=== PATIENT | female | born 1965 | race Caucasian/White ===

== ENCOUNTER → 2020-07-17 | Day surgery (SDC) | payer OTHER ==
[~2020-07-17] MED LIST: ATORVASTATIN CA10 MG PO; AZATHIOPRINE50 MG PO; CLARITIN10 MG PO; FOSAMAX70 MG PO; FYAVOLV 1 MG-51 EACH PO; NORCO 5-325 TA1 EACH PO; ONDANSETRON ODT8 MG PO; PREDNISONE5 MG PO; SINGULAIR10 MG PO; SYNTHROID50 MCG PO; VITAMIN D310 MC1 PO
[2020-07-17 08:43] LABS: HCG (URINE) SCREEN NEGATIVE (NEGATIVE)
[2020-07-17 08:59] LABS: HCT 39.2 % (37.0-47.0); HGB 13.5 g/dl (12.5-16.0); MCH 32.1 pg (25.0-31.0); MCHC 34.4 g/dL (32.0-36.0); MCV 93.3 fL (78.0-100.0); RBC 4.2 M/uL (4.20-5.40); RDW 11.9 % (11.5-14.0); WBC 6.3 K/uL (4.0-10.5)
[2020-07-17 09:15] LABS: ALBUMIN 3.8 g/dL (3.4-5.0); BILIRUBIN - TOTAL 1.3 mg/dL (0.2-1.0); BUN/CREAT RATIO (CALC) 10.3 RATIO; CREATININE 0.87 mg/dL (0.51-0.95); GLOBULIN (CALCULATION) 3.5 g/dL; POTASSIUM 3.9 mmol/L (3.5-5.1); TOTAL PROTEIN 7.3 g/dL (6.4-8.2)
== END | disposition home or self-care (01) ==
LOC: FAS 08:21
PROVIDERS: Surgery
DX: Z12.11 Encounter for screening for malignant neoplasm of colon (principal); K64.1 Second degree hemorrhoids; K57.30 Diverticulosis of large intestine without perforation or abscess without bleeding; E78.5 Hyperlipidemia, unspecified; E78.00 Pure hypercholesterolemia, unspecified; E03.9 Hypothyroidism, unspecified; Z88.2 Allergy status to sulfonamides; Z79.899 Other long term (current) drug therapy; Z98.890 Other specified postprocedural states; Z82.49 Family history of ischemic heart disease and other diseases of the circulatory system; Z20.822 Contact with and (suspected) exposure to COVID-19
CPT/HCPCS: 36415; 80053; 84703; J1100; J2250; J2704; J7120